=== PATIENT | female | born 2000 | race Two or more races ===

== ENCOUNTER 2021-06-19 16:20 | Observation (INO) | payer SELFPAY ==
[~2021-06-19] VITALS: Ht 157.5 cm; Wt 88.5 kg
[2021-06-19] MEDS ORDERED: LACTATED RINGER'S 1,000 ML IV ONE (18:30)
[2021-06-19] MEDS: TERBUTALINE SULFATE 1 MG/ML 1ML VIAL SC SCH ×2 (18:52→19:14)
[2021-06-19] MEDS ORDERED: FERR1TAB36 PO (20:20)
[2021-06-19] MEDS ORDERED: PREN-96 PO (20:20)
== END 2021-06-19 20:32 | disposition home or self-care (01) ==
LOC: LDRP 16:20
PROVIDERS: ADMIT Obstetrics & Gynecology; ATTEND Obstetrics & Gynecology
DX: O26.852 Spotting complicating pregnancy, second trimester (principal); Z3A.26 26 weeks gestation of pregnancy
CPT/HCPCS: 59025; 76815; 81002; 94760; 96360; 96361; 96372; G0378; J3105